=== PATIENT | male | born 1970 ===

== ENCOUNTER 2017-12-24 10:48 | Emergency (ER) | payer OTHER ==
[2017-12-24 10:55] VITALS: BP 139/77; RESP 22; TEMP 98; O2SAT 99
[2017-12-24 10:56] VITALS: BMI 28.3
--- NOTE | 2017-12-24 11:55 | ED PDOC ---
HPI: General Adult Time Seen by Provider: 12/24/17 11:32 Chief Complaint (Nursing): Dizziness/Lightheaded Chief Complaint (Provider): Dizziness and SOB History Per: Patient History/Exam Limitations: no limitations Onset/Duration Of Symptoms: Hrs Current Symptoms Are (Timing): Better Additional Complaint(s): 47 year old male presents to the ER for an evaluation of dizziness onset this morning. Patient states he had one episode of dizziness after taking a shower. Also reports of SOB for a few seconds when walking. He states the symptoms resolved and denies any complaints upon arrival to ER. PMD: No Family Provider Past Medical History Reviewed: Historical Data, Nursing Documentation, Vital Signs Vital Signs: Last Vital Signs Temp 98 F 12/24/17 10:54 Pulse 63 12/26/17 14:05 Resp 22 12/24/17 10:54 BP 139/77 12/24/17 10:54 Pulse Ox 99 12/26/17 14:05 - Medical History PMH: No Chronic Diseases - Surgical History Surgical History: No Surg Hx - Family History Family History: States: Unknown Family Hx - Social History Current smoker - smoking cessation education provided: No Alcohol: None Drugs: Denies - Allergies Allergies/Adverse Reactions: Allergies Allergy/AdvReac Type Severity Reaction Status Date / Time No Known Allergies Allergy Verified 12/24/17 10:57 Review of Systems ROS Statement: Except As Marked, All Systems Reviewed And Found Negative Respiratory: Positive for: Shortness of Breath Neurological: Positive for: Dizziness Psych: Negative for: Suicidal ideation (homicidal ideation) Physical Exam - Reviewed Nursing Documentation Reviewed: Yes Vital Signs Reviewed: Yes - Physical Exam Appears: Positive for: Well, Non-toxic, No Acute Distress Head Exam: Positive for: ATRAUMATIC, NORMAL INSPECTION, NORMOCEPHALIC Skin: Positive for: Normal Color, Warm, Dry Eye Exam: Positive for: Normal appearance, EOMI Cardiovascular/Chest: Positive for: Regular Rate, Rhythm Respiratory: Negative for: Respiratory Distress Extremity: Positive for: Normal ROM. Negative for: Tenderness, Pedal Edema, Deformity Neurologic/Psych: Positive for: Alert, Oriented (x3), Gait (steady) - ECG ECG Rhythm: Positive for: Normal QRS, Normal ST Segment, Sinus Rhythm Rate: 63 O2 Sat by Pulse Oximetry: 99 (RA) Pulse Ox Interpretation: Normal Medical Decision Making Medical Decision Making: Time: 1132 Initial Impression: dizziness and dyspnea resolved Initial Plan: --Patient is asymptomatic and requires no further treatment of observation in ER --Patient would like to leave and follow up with PMD Vitals are normal and EKG presents 63 bpm, no ST changes, normal QRS, normal sinus rhythm Scribe Attestation: Documented by Awa Muir, acting as a scribe for Rashmi Jackson MD. Provider Scribe Attestation: All medical record entries made by the Scribe were at my direction and personally dictated by me. I have reviewed the chart and agree that the record accurately reflects my personal performance of the history, physical exam, medical decision making, and the department course for this patient. I have also personally directed, reviewed, and agree with the discharge instructions and disposition. Disposition - Clinical Impression Clinical Impression: Dizziness - Patient ED Disposition Is Patient to be Admitted: No Counseled Patient/Family Regarding: Studies Performed, Diagnosis, Need For Followup - Disposition Referrals: [facility] [Outside] Disposition: Routine/Home Disposition Time: 11:35 Condition: GOOD Additional Instructions: CAMILLE ORTEGA, thank you for letting us take care of you today. Your provider was Rashmi Jackson MD and you were treated for DIZZINESS. The emergency medical care you received today was directed at your acute symptoms. If you were prescribed any medication, please fill it and take as directed. It may take several days for your symptoms to resolve. Return to the Emergency Department if your symptoms worsen, do not improve, or if you have any other problems. Please contact your doctor or call one of the physicians/clinics you have been referred to that are listed on the Patient Visit Information form that is included in your discharge packet. Bring any paperwork you were given at discharge with you along with any medications you are taking to your follow up visit. Our treatment cannot replace ongoing medical care by a primary care provider outside of the emergency department. Thank you for allowing the [facility] team to be part of your care today. Instructions: Dizziness, Nonvertigo, (DC)
[2017-12-24 13:19] VITALS: PULSE 63
== END 2017-12-24 12:09 | disposition home or self-care (01) ==
LOC: H.ER 10:48
DX: R42 Dizziness and giddiness (principal)